=== PATIENT | male | born 1970 ===

== ENCOUNTER 2018-12-14 11:48 | Outpatient (CLI) | payer OTHER ==
[~2018-12-14] VITALS: Ht 172.7 cm; Wt 102.5 kg
== END 2018-12-14 12:05 | disposition home or self-care (01) ==
LOC: OFIC 805 11:48
DX: Q38.8 Other congenital malformations of pharynx (principal); J35.01 Chronic tonsillitis

== ENCOUNTER 2018-12-28 08:17 | Outpatient (CLI) | payer OTHER ==
[~2018-12-28] VITALS: Ht 152.4 cm; Wt 102.5 kg
== END 2018-12-28 08:35 | disposition home or self-care (01) ==
LOC: OFIC 805 08:17
DX: R13.19 Other dysphagia (principal); J35.1 Hypertrophy of tonsils

== ENCOUNTER 2018-12-28 09:48 | Outpatient (CLI) | payer OTHER | END 2018-12-28 10:05 | disposition home or self-care (01) | LOC: LAB 09:48 | DX: J35.8 Other chronic diseases of tonsils and adenoids (principal) ==

== ENCOUNTER 2018-12-28 12:53 | Outpatient (CLI) | payer OTHER | END 2018-12-28 13:05 | disposition home or self-care (01) | LOC: TOM 12:53 | DX: J35.8 Other chronic diseases of tonsils and adenoids (principal); R13.19 Other dysphagia ==

== ENCOUNTER 2019-01-01 16:06 | Outpatient (CLI) | payer OTHER ==
[~2019-01-01] VITALS: Ht 152.4 cm; Wt 102.1 kg
== END 2019-01-01 16:20 | disposition home or self-care (01) ==
LOC: OFIC 805 16:06
DX: R13.19 Other dysphagia (principal); J35.1 Hypertrophy of tonsils; J03.90 Acute tonsillitis, unspecified

== ENCOUNTER 2019-01-18 09:59 | Outpatient (CLI) | payer OTHER ==
[~2019-01-18] VITALS: Ht 152.4 cm; Wt 102.1 kg
== END 2019-01-18 10:11 | disposition home or self-care (01) ==
LOC: OFIC 805 09:59
DX: C09.9 Malignant neoplasm of tonsil, unspecified (principal); C44.42 Squamous cell carcinoma of skin of scalp and neck